=== PATIENT | female | born 1955 | race Asian ===

== ENCOUNTER 2020-04-09 11:30 | Emergency (ER) | payer BC ==
[~2020-04-09] VITALS: Ht 152.4 cm; Wt 53.5 kg
[2020-04-09 15:00] VITALS: BP 150/81
== END 2020-04-09 15:50 | disposition home or self-care (01) ==
LOC: ER 11:30
DX: R05 Cough (principal); F41.9 Anxiety disorder, unspecified
CPT/HCPCS: 71045